=== PATIENT | male | born 1995 | race Hispanic/Latino ===

== ENCOUNTER 2016-06-14 17:24 | Emergency (ER) | payer OTHER ==
[~2016-06-14] VITALS: Ht 167.6 cm; Wt 77.3 kg
[2016-06-14 17:35] VITALS: BP 118/67; PULSE 53; RESP 20; O2SAT 98
--- NOTE | 2016-06-14 19:39 | DRSVH ---
PROCEDURE: X-RAY RIGHT FOREARM, TWO VIEWS ([id number]) INDICATIONS: right forearm pain TECHNIQUE: 2 views of the forearm were acquired. COMPARISON: None. FINDINGS: Bones: No fractures or dislocations. No suspicious bony lesions. Soft tissues: No suspicious soft tissue calcifications or masses. IMPRESSION: No fracture Dictated by: Larry Robertson M.D. on 06/14/2016 at 19:29 Approved by: Larry Robertson M.D. on 06/14/2016 at 19:38
--- NOTE | 2016-06-14 19:41 | DRSVH ---
PROCEDURE: X-RAY FINGERS, TWO VIEWS INDICATIONS: right finger(s) pain, contusion TECHNIQUE: AP hand, 2 views of the right finger(s) acquired. COMPARISON: None. FINDINGS: Bones: No fractures or dislocations. No suspicious bony lesions. Soft tissues: No suspicious soft tissue calcifications. IMPRESSION: No fracture Dictated by: Larry Robertson M.D. on 06/14/2016 at 19:38 Approved by: Larry Robertson M.D. on 06/14/2016 at 19:40
--- NOTE | 2016-06-14 20:24 | ED.REPORT ---
HPI-Extremity Problem Upper Date of Service Jun 14, 2016 ED Provider: Jerry Torres MD Pt is a 21 y/o male presenting to the ED c/o right forearm injury which occurred yesterday. He states a cow kicked him in the right forearm. He denies numbness or weakness or other sites of injury. Nursing Notes Stated Complaint: LT ARM Chief Complaint: Extremity Trauma Nursing Notes Reviewed: Yes Allergies: Coded Allergies: No Known Allergies (Verified , 11/28/04) Uncoded Allergies: No Known Allergies (Allergy, Severe, 11/28/04) Scheduled PRN Ibuprofen (Ibuprofen) 800 Mg Tablet 800 MG PO TID PRN PRN For Pain General Time Seen by MD: 20:02 Chief Complaint Arm injury right Hx Obtained From: Patient Arrived By: Walk-in Onset Occurred: Yesterday Symptom Duration: Since onset Location: : Arm right Quality: Painful Severity: Current: Mild Severity: Maximum: Moderate Similar Sx Previous: No Past Medical History Past Medical History Denies Past Surgical History Denies Smoking History Unknown if Ever Smoker Ambulatory Status Independent Review of Systems Constitutional: Denies: Chills, Fever Musculoskeletal: Reports: Extremity pain, Denies: Extremity swelling Neurologic: Denies: Numbness, Weakness Complete sys rev & neg: except as marked. Physical Exam Initial Vital Signs Vital Signs (First) Date Time Temp Pulse Resp B/P Pulse Ox O2 Delivery O2 Flow Rate FiO2 06/14/16 17:35 36 53 20 118/67 98 Room Air Initial VS: Reviewed, Vital signs normal Head / Eyes: Atraumatic, Normocephalic, PERRL ENT: Mucous membranes moist, Conjunctiva normal, No scleral icterus Neck: Supple, Full range of motion Respiratory: No respiratory distress Cardiovascular: Intact distal pulses Abdomen / GI: Soft, Non-tender Lower Extremities: Vascular intact, Neuro intact, No swelling, No tenderness Skin: Warm, Dry, No cyanosis Neurologic: Alert, Oriented, Nonfocal Psychiatric: Mood/affect normal, Behavior normal, Normal thought content General/Constitutional: Awake, Alert, No acute distress, Cooperative, Not toxic appearing Upper Extremity / MS: No erythema, No deformity, Neurologic intact, Vascular intact Abrasion over right medial forearm Interpretation & Diagnostics X-Ray Interpretation Xray Interpretation: IMPRESSION: No fracture Dictated by: Larry Robertson M.D. on 06/14/2016 at 19:29 Approved by: Larry Robertson M.D. on 06/14/2016 at 19:38 Study Performed: 2 view forearm right Interpretation / Wet Read by: Interpret - Radiologist Xray Interpretation: IMPRESSION: No fracture Dictated by: Larry Robertson M.D. on 06/14/2016 at 19:38 Approved by: Larry Robertson M.D. on 06/14/2016 at 19:40 Study Performed: Right fingers, 2 view Interpretation / Wet Read by: Interpret - Radiologist Re-Eval/Medical Decision Med Decision/Clinical Course Right forearm contusion after being kicked by a cow. No fracture. Right upper extremity is neurovascularly intact. Recommend rice. Follow up PMD PRN. Return precautions given. Re-Evaluation/Progress : Time of Eval: 20:46 Re-Evaluation/Progress Note: Pt rechecked. Informed pt of plan for treatment. Pt understands and agrees with plan for treatment. F/U instructions and RTER warnings given. All questions addressed. Counseled Regarding: Diagnosis, Need for follow-up, When/why to return to ED Discharge & Departure Impression: Primary Impression: Right forearm injury Encounter type: initial encounter Qualified Code: S59.911A - Unspecified injury of right forearm, initial encounter Disposition: Home Discharge Condition All VS Reviewed: Yes Condition: Stable Patient Instructions: Contusions in Adults (ED) Additional Instructions: The x-ray showed no signs of fracture. Return to the emergency department if you develop worsening pain, numbness or weakness of your hand or fingers, or for other concerning symptoms. Follow-up with your primary doctor if pain does not improve. Referrals: [facility] (PCP) [facility] Scribe Attestation Portions of this note were transcribed by Soren Agrawal. I, Dr. Torres, personally performed the history, physical exam and medical decision-making; I reviewed and confirmed the accuracy of the information in the transcribed note. Signed by Bereket Tolliver, 06/14/162049 Jerry Torres MD Jun 14, 2016 20:23 SOREN AGRAWAL Jun 14, 2016 20:27
[2016-06-14] MEDS ORDERED: IBUP800T28 PO (20:48)
[2016-06-14 21:10] VITALS: BP 120/68; PULSE 62; RESP 20; O2SAT 98
== END 2016-06-14 21:11 | disposition home or self-care (01) ==
LOC: SED 17:24
DX: S50.11XA Contusion of right forearm, initial encounter (principal); W55.22XA Struck by cow, initial encounter; Y92.9 Unspecified place or not applicable; Y93.89 Activity, other specified; Y99.8 Other external cause status